=== PATIENT | female | born 1990 | race Caucasian/White ===

== ENCOUNTER 2025-05-11 14:19 | Emergency (ER) | payer OTHER ==
[~2025-05-11] VITALS: Ht 154.9 cm; Wt 58.1 kg
[2025-05-11] MEDS ORDERED: Dexamethasone Sod Phos 10 MG/ML 1ML VIAL PO ONE (17:10)
[2025-05-11] MEDS ORDERED: AZIT250 PO (17:11)
== END 2025-05-11 17:12 | disposition home or self-care (01) ==
LOC: ER 14:19
DX: J02.9 Acute pharyngitis, unspecified (principal); Z88.1 Allergy status to other antibiotic agents
CPT/HCPCS: 87081; 87430; 99283; J1100